=== PATIENT | female | born 1945 | race Two or more races ===

== ENCOUNTER 2021-09-18 20:48 | Emergency (ER) | payer OTHER, MEDICAID ==
[~2021-09-18] VITALS: Ht 162.6 cm; Wt 77.1 kg
[2021-09-18 20:49] VITALS: BP 147/87
[2021-09-18] MEDS ORDERED: AZIT250T9 PO (21:52)
[2021-09-18] MEDS ORDERED: AZIT500T66 PO (21:52)
== END 2021-09-19 04:13 | disposition home or self-care (01) ==
LOC: ER 20:48
DX: B34.9 Viral infection, unspecified (principal); E11.9 Type 2 diabetes mellitus without complications; E78.5 Hyperlipidemia, unspecified; I10 Essential (primary) hypertension; F17.210 Nicotine dependence, cigarettes, uncomplicated
CPT/HCPCS: 71045

== ENCOUNTER 2022-03-01 10:46 | Emergency (ER) | payer OTHER, MEDICAID ==
[~2022-03-01] VITALS: Ht 157.5 cm; Wt 79.5 kg
[~2022-03-01 10:46] MED LIST: AZIT250T9 PO; AZIT500T66 PO
[2022-03-01 12:33] VITALS: BP 171/93
[2022-03-01] MEDS ORDERED: IBUP800T27 PO (13:29)
[2022-03-01] MEDS ORDERED: IBUPROFEN 800 MG TAB PO ONE (13:30)
== END 2022-03-01 13:45 | disposition home or self-care (01) ==
LOC: ER 10:46
DX: M77.8 Other enthesopathies, not elsewhere classified (principal); I10 Essential (primary) hypertension; E11.9 Type 2 diabetes mellitus without complications; E78.5 Hyperlipidemia, unspecified; F17.210 Nicotine dependence, cigarettes, uncomplicated; Z79.1 Long term (current) use of non-steroidal anti-inflammatories (NSAID); Z79.2 Long term (current) use of antibiotics; Z88.8 Allergy status to other drugs, medicaments and biological substances
CPT/HCPCS: 73080